=== PATIENT | male | born 1985 | race Caucasian/White ===

== ENCOUNTER 2017-11-14 06:32 | Emergency (ER) | payer MEDICAID ==
[~2017-11-14] VITALS: Ht 177.8 cm; Wt 75.1 kg
[2017-11-14 06:34] VITALS: BP 137/87
[2017-11-14] MEDS ORDERED: FLUORESCEIN OPHTHALMIC 1 MG STRIP ONE (07:10)
[2017-11-14] MEDS ORDERED: PROPARACAINE OPHTH 0.5%, 15ML ONE (07:10)
[2017-11-14] MEDS ORDERED: FLUORESCEIN OPHTHALMIC 1 MG STRIP EACHEYE ONE (07:30)
[2017-11-14] MEDS ORDERED: PROPARACAINE OPHTH 0.5%, 15ML EACHEYE ONE (07:30)
== END 2017-11-14 11:17 | disposition home or self-care (01) ==
LOC: ED 07:49
DX: T15.01XA Foreign body in cornea, right eye, initial encounter (principal); X58.XXXA Exposure to other specified factors, initial encounter; Y93.89 Activity, other specified; Y92.89 Other specified places as the place of occurrence of the external cause; Y99.8 Other external cause status
CPT/HCPCS: 99283